=== PATIENT | male | born 1955 | race Hispanic/Latino ===

== ENCOUNTER → 2018-11-24 | Outpatient (CLI) | payer OTHER ==
--- NOTE | 2018-11-24 13:36 | Diagnostic Imaging Report ---
EXAMINATION: CHEST 2 VIEWS INDICATION: Shortness of breath, left sided chest pain. COMPARISON: None FINDINGS: TUBES and LINES: None. LUNGS: Lungs are moderately inflated. Mild patchy opacity at the left lung base. There is no evidence of lobar pneumonia or pulmonary edema. PLEURA: No pleural effusion or pneumothorax. HEART AND MEDIASTINUM: The cardiomediastinal silhouette is unremarkable. BONES AND SOFT TISSUES: No acute osseous abnormality. No evidence of acute displaced rib fracture. UPPER ABDOMEN: No free air under the diaphragm. IMPRESSION: No acute radiographic abnormality. Signed by: Dr. Paradise Irvin MD on 11/24/2018 1:33 PM
== END ==
LOC: RAD 12:12
PROVIDERS: ATTEND Internal Medicine
DX: R06.02 Shortness of breath (principal)
CPT/HCPCS: 71046

== ENCOUNTER → 2019-02-06 | Outpatient (CLI) | payer OTHER ==
--- NOTE | 2019-02-06 17:07 | Diagnostic Imaging Report ---
Radiographs of the sinuses - 5 views HISTORY: Pain COMPARISON: None available. FINDINGS: Bones: No acute displaced fracture. Osseous alignment is within normal limits. Joints: The joint spaces are well-maintained. Soft tissues: Suspected mucosal thickening in the maxillary sinuses IMPRESSION: Suspected mucosal thickening in the maxillary sinuses. CT scan may be of benefit. Signed by: Dr. Wilfred Torres M.D. on 02/06/2019 5:04 PM
--- NOTE | 2019-02-06 17:09 | Diagnostic Imaging Report ---
EXAMINATION: CHEST 2 VIEWS INDICATION: Bronchitis COMPARISON: 11/24/2018. CT scan 01/07/2017 FINDINGS: TUBES and LINES: None. LUNGS: Lungs are well inflated. Perihilar peribronchial hazy opacity could be due to bronchitis. There is no evidence of pneumonia or pulmonary edema. PLEURA: No pleural effusion or pneumothorax. HEART AND MEDIASTINUM: Suspected mild aneurysmal dilatation of the ascending aorta. The heart is normal in size. Midline trachea. BONES AND SOFT TISSUES: No acute osseous lesion. Soft tissues are unremarkable. UPPER ABDOMEN: No free air under the diaphragm. IMPRESSION: Perihilar peribronchial hazy opacity could be due to bronchitis. Signed by: Dr. Wilfred Torres M.D. on 02/06/2019 5:06 PM
== END ==
LOC: RAD 16:30
PROVIDERS: ATTEND Internal Medicine
DX: J40 Bronchitis, not specified as acute or chronic (principal); J32.9 Chronic sinusitis, unspecified
CPT/HCPCS: 70210; 71046

== ENCOUNTER 2022-07-28 05:46 | Observation (INO) | payer MEDICARE, OTHER ==
[~2022-07-28] VITALS: Ht 177.8 cm; Wt 95.3 kg
[2022-07-28 06:05] LABS: BASOPHILS % 0.5 % (0.0-1.0); EOSINOPHILS # (AUTO) 0.3 (0.0-0.4); EOSINOPHILS % 4.2 % (0.0-6.0); HEMATOCRIT 44.8 % (38.2-49.6); HEMOGLOBIN 14.9 g/dL (14.0-18.0); LYMPHOCYTES # (AUTO) 2.4 (1.0-3.2); LYMPHOCYTES % 30.9 % (18.0-39.1); MEAN CORPUSCULAR HEMOGLOBIN 29.8 pg (28-32); MEAN CORPUSCULAR HGB CONC 33.3 g/dL (31-35); MEAN CORPUSCULAR VOLUME 89.6 fL (81-99); MONOCYTES # (AUTO) 0.5 (0.2-0.8); MONOCYTES % 6.5 % (4.4-11.3); NEUTROPHILS # (AUTO) 4.4 (2.1-6.9); NEUTROPHILS % 57.2 % (38.7-80.0); PLATELET COUNT 211 x10e3/uL (140-360); RED CELL DISTRIBUTION WIDTH 13.5 % (11.7-14.4)
[2022-07-28] MEDS ORDERED: FAMOTIDINE 20 MG/2 ML VIAL IV STA (06:27)
[2022-07-28 06:28] LABS: CLARITY,URINE CLEAR (CLEAR); COLOR,URINE YELLOW (YELLOW); KETONES,URINE NEGATIVE (NEGATIVE); LEUKOCYTE ESTERASE ,URINE NEGATIVE (NEGATIVE); NITRITE,URINE NEGATIVE (NEGATIVE); PROTEIN,URINE DIPSTICK NEGATIVE (NEGATIVE); URINE UROBILINOGEN 0.2 mg/dL (0.2 - 1)
[2022-07-28 06:30] LABS: ALBUMIN 4.1 g/dL (3.5-5.0); ALBUMIN/GLOBULIN RATIO 1.2 (0.8-2.0); ANION GAP 13.4 mmol/L (8-16); CALCIUM 8.8 mg/dL (8.4-10.2); CREATININE, SERUM 0.92 mg/dL (0.72-1.25); POTASSIUM 3.4 mmol/L (3.5-5.1)
[2022-07-28 06:30] LABS: BACTERIA,URINE FEW /HPF; EPITHELIAL CELLS,URINE FEW /LPF; WBC,URINE (MAN) 0-5 /HPF (0-5)
[2022-07-28] MEDS ORDERED: ASPIRIN 325 MG TAB PO ONE (06:30)
[2022-07-28 06:36] LABS: CREATINE KINASE MB 1.5 ng/mL (0-5.0)
[2022-07-28] MEDS ORDERED: DONNATAL/LIDOCAINE/MAALOX 30 ML SUSP PO SCH (07:30)
[2022-07-28] MEDS ORDERED: DEXTROSE 50% SYRINGE 50 ML IV PRN (08:30)
[2022-07-28] MEDS ORDERED: ONDANSETRON HCL INJ 2MG/ML 2ML 2 MG/ML VIAL IV PRN (08:30)
[2022-07-28] MEDS ORDERED: POTASSIUM CHLORIDE 20 MEQ TAB CR PO STA (08:34)
[2022-07-28] MEDS: INSULIN REGULAR, HUMAN 100 UNIT/1 ML SQ SCH ×3 (11:30→21:00)
[2022-07-28 12:46] LABS: CREATINE KINASE MB 1.1 ng/mL (0-5.0)
[2022-07-28 15:02] VITALS: BP 128/79
[2022-07-28 15:30] VITALS: BP 128/79
[2022-07-28] MEDS ORDERED: LOSARTAN POTASS25 MG PO (15:38)
[2022-07-28] MEDS ORDERED: METFORMIN HCL500 MG PO (15:38)
[2022-07-28] MEDS ORDERED: CRESTOR5 MG PO (15:39)
[2022-07-28 16:40] VITALS: BP 128/79
[2022-07-28 19:02] LABS: CREATINE KINASE MB 0.7 ng/mL (0-5.0)
[2022-07-28 19:52] VITALS: BP 128/79
[2022-07-28 20:00] VITALS: BP 121/87
[2022-07-28 20:40] VITALS: BP 121/87
[2022-07-29 00:41] VITALS: BP 116/85
[2022-07-29 04:00] VITALS: BP 114/88
[2022-07-29 05:25] LABS: BASOPHILS % 0.2 % (0.0-1.0); EOSINOPHILS # (AUTO) 0.1 (0.0-0.4); EOSINOPHILS % 0.9 % (0.0-6.0); HEMATOCRIT 42.2 % (38.2-49.6); HEMOGLOBIN 14.3 g/dL (14.0-18.0); LYMPHOCYTES # (AUTO) 1.6 (1.0-3.2); LYMPHOCYTES % 16.7 % (18.0-39.1); MEAN CORPUSCULAR HEMOGLOBIN 29.9 pg (28-32); MEAN CORPUSCULAR HGB CONC 33.9 g/dL (31-35); MEAN CORPUSCULAR VOLUME 88.1 fL (81-99); MONOCYTES # (AUTO) 0.6 (0.2-0.8); MONOCYTES % 6.8 % (4.4-11.3); PLATELET COUNT 194 x10e3/uL (140-360); RED BLOOD COUNT 4.79 x10e6/uL (4.3-5.7); RED CELL DISTRIBUTION WIDTH 13.5 % (11.7-14.4)
[2022-07-29 06:16] LABS: ANION GAP 13.9 mmol/L (8-16); CALCIUM 8.6 mg/dL (8.4-10.2); CREATININE, SERUM 0.83 mg/dL (0.72-1.25); POTASSIUM 3.9 mmol/L (3.5-5.1)
[2022-07-29 06:58] LABS: CREATINE KINASE 61 IU/L (30-200)
[2022-07-29] MEDS ORDERED: FAMOTIDINE 20 MG TAB PO SCH (08:30)
[2022-07-29] MEDS ORDERED: ACETAMINOPHEN 325 MG TAB PO PRN (08:30)
[2022-07-29 08:31] VITALS: BP 120/82
[2022-07-29 08:57] VITALS: BP 120/82
[2022-07-29] MEDS ORDERED: LOSARTAN POTASSIUM 25 MG TAB PO SCH (09:00)
[2022-07-29] MEDS: INSULIN REGULAR, HUMAN 100 UNIT/1 ML SQ SCH (09:37)
[2022-07-29] MEDS ORDERED: CRESTOR 10MG PO SCH (21:00)
[2022-07-29] MEDS ORDERED: SIMVASTATIN 20 MG TAB PO SCH (21:00)
== END 2022-07-29 12:07 | disposition home or self-care (01) ==
LOC: ER 05:55 → ERHOLD 08:22 → MED/SURG 14:25
PROVIDERS: ADMIT Internal Medicine; ATTEND Internal Medicine
DX: R07.89 Other chest pain (principal); E11.9 Type 2 diabetes mellitus without complications; Z79.4 Long term (current) use of insulin; Z20.822 Contact with and (suspected) exposure to COVID-19; Z87.891 Personal history of nicotine dependence; E11.69 Type 2 diabetes mellitus with other specified complication; E78.2 Mixed hyperlipidemia
CPT/HCPCS: 36415 ×2; 71045; 80048; 80053; 81001; 82550 ×2; 82553 ×2; 82948 ×2; 83036; 83690; 84443; 84484 ×2; 85025 ×2; 93005; 93306; 99284; G0378 ×2; J1817; U0002